=== PATIENT | male | born 2000 | race Caucasian/White ===

== ENCOUNTER 2019-12-07 15:08 | Emergency (ER) | payer OTHER ==
[~2019-12-07] VITALS: Ht 180.3 cm; Wt 83.9 kg
[2019-12-07] MEDS ORDERED: CEPH500 PO (18:26)
== END 2019-12-07 18:45 | disposition home or self-care (01) ==
LOC: ER 15:08
DX: S61.412A Laceration without foreign body of left hand, initial encounter (principal); Z23 Encounter for immunization; W25.XXXA Contact with sharp glass, initial encounter
CPT/HCPCS: 12044; 73130; 90471; 90714; 99282-25; A9270-GY

== ENCOUNTER 2019-12-09 13:54 | Emergency (ER) | payer OTHER ==
[~2019-12-09] VITALS: Ht 180.3 cm; Wt 79.4 kg
[~2019-12-09 13:54] MED LIST: CEPH500 PO
== END 2019-12-09 15:38 | disposition home or self-care (01) ==
LOC: ER 13:54
DX: S61.512D Laceration without foreign body of left wrist, subsequent encounter (principal)

== ENCOUNTER → 2021-06-12 | Outpatient (CLI) | payer OTHER | END | disposition home or self-care (01) | LOC: LAB SHORT 07:32 | DX: L72.9 Follicular cyst of the skin and subcutaneous tissue, unspecified (principal) ==